=== PATIENT | female | born 1945 | race Caucasian/White ===

== ENCOUNTER 2024-07-11 12:44 | Emergency (ER) | payer BC, SELFPAY ==
[2024-07-11 12:57] VITALS: BP 150/82
[2024-07-11 13:25] LABS: % Basophils 0.2 % (0-2); % Eosinophils 0.2 % (0-6); % Immature Granulocytes 0.4 % (0-0.5); % Lymphocytes 8.4 % (20.5-51.1); % Monocytes 3.7 % (1.7-9.3); % Neutrophils 87.1 % (42.2-75.2); Absolute Immature Granulocytes 0.1 10^3/uL (0-0.05); Absolute Monocytes 0.4 10^3/uL (0.1-0.6); Absolute Neutrophils 10.5 10^3/uL (1.4-6.5); Hematocrit 39.9 % (37.0-47.0); Hemoglobin 13.4 g/dL (12.0-16.0); Mean Corp Hgb Conc. 33.6 g/dL (33.0-37.0); Mean Corpuscular Hgb 29.5 pg (27.0-31.0); Mean Corpuscular Volume 87.9 fL (81.0-99.0); Mean Platelet Volume 9.8 fL (7.4-10.4); Nucleated Red Blood Cells % 0 %; Platelet Count 289 10^3/uL (130-400); Red Blood Cell Count 4.54 10^6/uL (4.20-5.40); Red Cell Dist. Width 13.1 % (11.5-14.5)
[2024-07-11 13:26] LABS: Glucose - Point of Care 146 mg/dl (70-99)
[2024-07-11 13:37] LABS: Lactic Acid 2.4 mmol/L (0.7-2.0)
[2024-07-11 13:43] LABS: Blood Urea Nitrogen 17 mg/dl (7-17); Calcium 9.6 mg/dl (8.4-10.2); Carbon Dioxide 24 mmol/L (22-30); Chloride 99 mmol/L (98-107); Glucose 166 mg/dl (70-99); Sodium 137 mmol/L (135-145); eGFR > 60.00
[2024-07-11] MEDS: TYLENOL 650 MG PO (13:47)
[2024-07-11] MEDS: NSS 1000 IV (13:47)
[2024-07-11 15:15] LABS: Urine Albumin 1+ (Neg - Trace); Urine Bilirubin Negative (Negative); Urine Character Clear (Clear); Urine Color Yellow; Urine Glucose Negative (Negative); Urine Ketone Negative (Negative); Urine Leukocyte 1+ (Negative); Urine Nitrite Negative (Negative); Urine Occult Blood 4+ (Negative); Urine Urobilinogen Negative (Neg - 1+)
[2024-07-11 15:19] LABS: Urine Bacteria Few (Negative); Urine Red Blood Cell 26-30 /HPF (0-2); Urine Squamous Cell 16-20 /LPF (Few)
[2024-07-11] MEDS: ROCEPHIN 1000 MG IV (15:26)
--- NOTE | 2024-07-11 15:43 | ED.GENMED ---
History of Present Illness
General
Chief Complaint: Urinary Symptoms
Source: patient
Exam Limitations: none
Time Seen by Provider: 07/11/24 13:07
Nursing documentation reviewed up to this point in time: agreed with
History of Present Illness
History of Present Illness:
79-year-old female with a history of hypertension, insulin-dependent diabetes, DVT on Xarelto, coming from a correction, [facility] for gross hematuria this morning. Patient says that she has been having urinary frequency and some
suprapubic pressure over the last couple days. She does chronically wear depends at night because it is very difficult for her to get up and walk to the bathroom because of her body habitus. She also has chronic hip pain making it difficult for
her to move around. She says she noticed that she was urinating frequently since yesterday and even maybe the day before but then today when she urinated in the toilet she saw some blood coloring the water pink. There was no clot and she does feel
like she can void.
She was unaware she had a fever. She has not had any nausea or back pain. She does have a vaginal lesion that occasionally has blood, it is a cyst or some labial lesions it is being monitored and she thought maybe that could be the cause of the
bleeding so she had the staff there [place] and they did not see any bleeding from that area. Patient has not had any rectal bleeding.
Past History
Past History
ED Past Medical History: HTN, IDDM, Other (Morbid obesity) and Other (DVT)
ED Past Surgical History: Other (HYSTERECTOMY)
Social History
Tobacco: Non-smoker
Review of Systems
Review of Systems
Allergies reviewed?: Yes
All Other Systems: Not applicable
Phy Exam
Physical Exam
Physical Exam:
GENERAL: Alert , morbid obesity, very limited mobility
EYE: pupils equal and reactive
NECK: Supple
ENT: o/p clr, mmm.
CARDIAC: Regular rate and rhythm .+MURMUR
LUNGS: Clear breath sounds bilaterally, no acute respiratory distress, no wheezes/rales/rhonchi
ABDOMEN: Soft, morbid obesity without focal tenderness, no r/g, no cvat, normal bowel sounds
: labial region, no bleeding
bimanual difficult but no obvious bleeding
no blood in diaper near rectum
NEUROLOGICAL: Alert and oriented, no focal neuro deficits
SKIN: Warm and dry, skin intact.
MUSCULOSKELETAL: limited painful ROM of hips b/l
PSYCH: Normal and appropriate interaction.
Course
Orders/Labs/Results
Orders:
Orders
07/11/24 13:12
Basic Metabolic Panel Urgent
Complete Blood Count/With Diff Urgent
Lactic Acid Urgent
07/11/24 13:42
CT Abd/pel Without Iv Or Oral Urgent
Comment:
Reason For Exam: hematuria
0.9% Sodium Chloride 1000 ml [Nss] 1,000 ml IV BOLUS
07/11/24 13:44
Acetaminophen [Tylenol] 650 mg PO NOW STA
07/11/24 14:50
Straight cath- Treatment ONCE
07/11/24 15:06
Urinalysis Reflex To Culture Urgent
Date Specimen was Collected: 07/11/24
Time Specimen was Collected: 14:54
Urine Microscopic Reflex Cult Urgent
Urine Culture Urgent
NIURKA Source: U
Specimen Description:
Date Specimen was Collected: 07/11/24
Time Specimen was Collected: 14:54
07/11/24 15:19
CefTRIAXone [Rocephin] 1,000 mg IV NOW STA
07/11/24 15:48
Lactic Acid Urgent
07/11/24 16:18
Dextrose 50%-Water [Dextrose 50% Syringe] 25 grams IV NOW STA
Abnormal Lab Results
07/11/24 07/11/24 07/11/24
13:12 13:24 15:06
WBC 12.0 H 10^3/uL
(4.8-10.8)
Abs Immat Gran (auto) 0.1 H 10^3/uL
(0-0.05)
Absolute Neuts (auto) 10.5 H 10^3/uL
(1.4-6.5)
Absolute Lymphs (auto) 1.0 L 10^3/uL
(1.2-3.4)
Neutrophils % 87.1 H %
(42.2-75.2)
Lymphocytes % 8.4 L %
(20.5-51.1)
Glucose 166 H mg/dl
(70-99)
Lactic Acid 2.4 H mmol/L
(0.7-2.0)
Ur Occult Blood Reflex 4+ A
(Negative)
Leukocyte Esterase Rfl 1+ A
(Negative)
Urine RBC 26-30 A /HPF
(0-2)
Urine Bacteria (Reflex) Few A
(Negative)
Urine Albumin (Reflex) 1+ A
(Neg - Trace)
POC Glucose 146 H mg/dl
(70-99)
07/11/24 07/11/24 07/11/24
15:50 16:16 16:50
WBC
Abs Immat Gran (auto)
Absolute Neuts (auto)
Absolute Lymphs (auto)
Neutrophils %
Lymphocytes %
Glucose
Lactic Acid
Ur Occult Blood Reflex
Leukocyte Esterase Rfl
Urine RBC
Urine Bacteria (Reflex)
Urine Albumin (Reflex)
POC Glucose 56 L mg/dl 62 L mg/dl 149 H mg/dl
(70-99) (70-99) (70-99)
07/11/24 13:12
07/11/24 13:12
Vital Signs
Initial and Last Documented VS:
Initial Vital Signs
Temp Pulse Resp BP Pulse Ox
100.7 F H 80 16 150/82 97
07/11/24 12:57 07/11/24 12:57 07/11/24 12:57 07/11/24 12:57 07/11/24 12:57
Last Documented Vital Signs
Temp Pulse Resp BP Pulse Ox
98.2 F 94 16 150/82 97
07/11/24 16:10 07/11/24 16:30 07/11/24 16:30 07/11/24 12:57 07/11/24 12:57
MDM/Problems Addressed
Differential Diagnosis Includes:
hemorrhagic cysitits
obstructive uroatphy
MDM/Problems Addressed:
79 y/o F
obesity
wears depends at night
on xarelto
here with some inc urinary frequency and gross hematuria
febrile here
normal bp
nonotxoci
difficult exam because of body habitus
wbc 12 with left shift
lactic 2.1
cr normal
ua +
unable to obtain PVR
ct scan does not show bladder distension or obstruction, no hydro
likely cystitis
will repeat lactic
if clear, d/c dory
pt did have insulin this am and didn't eat
felt al ittle hypoglycemic and accucheck is 56; given food
will recheck
anticipate d/c
REPEAT ACCUCHECK NORMAL AFTER DEXTROSE
SHE TAKES NO ORAL HYPOGLYCEMICS
pt will be d/c back to facility
lactate claered.
*Critical Care Note
Total Time (30-74mins, 75-104mins- exclusive of procedures): Not Applicable
ED Attending Note
-
Portions of this chart may have been created with voice recognition software.� Occasional wrong word or��sound alike� substitutions may have occurred due to the inherent limitations of voice recognition software.
Discharge Plan
Departure
Patient Disposition: Home (Routine Discharge)
Date of Disposition: 07/11/24
Time of Disposition: 17:01
Admit to: Med/Surg
Patient with high blood pressure during this ER visit?: No
Condition: Fair
Covid-19: Not Applicable
Discharge Problem:
Acute hemorrhagic cystitis, Sepsis
Prescriptions:
New
cefdinir 300 mg capsule
300 mg PO Q12H Qty: 14 0RF
No Action
metoprolol succinate 50 mg Tablet Extended Release 24 Hr
50 mg PO DAILY@2099
cyanocobalamin (vitamin B-12) 1,000 mcg Tablet
1,000 mcg PO FELTON
acetaminophen [Tylenol Arthritis] 650 mg Tablet Extended Release
650 mg PO DAILY
insulin lispro [Humalog KwikPen Insulin] 100 unit/mL Insulin Pen
1 sliding scale dose SC AC
insulin glargine [Lantus Solostar U-100 Insulin] 100 unit/mL (3 mL) Insulin Pen
0 unit SC HS
Patient Comments:
07/11/24: Patient uses sliding scale
cholecalciferol (vitamin D3) [Vitamin D3] 50 mcg (2,000 unit) Tablet
50 mcg PO DAILY
Creon 24,000-76,000 -120,000 unit Capsule,Delayed Release(Dr/Ec)
1 cap PO BID
Patient Comments:
07/11/24: Breakfast and dinner
Creon 24,000-76,000 -120,000 unit Capsule,Delayed Release(Dr/Ec)
2 cap PO NOON
Patient Comments:
07/11/24: lunch
pitavastatin calcium [Livalo] 2 mg Tablet
2 mg PO DAILY@2099
Xarelto 10 mg Tablet
10 mg PO DAILY@2099
Referrals:
Belén Osuna MD [Family Provider] - Follow up in 2-3 days
Activity Restrictions/Additional Instructions:
YOUR SYPMTOMS ARE LIKELY FROM A URINE INFECTION
YOUR BLEEDING IS MINIMAL AND YOU HAVE NO SIGNS OF URINARY RETENTION
YOU DID HAVE A FEVER SO WE GAVE A DOSE OF TYLENOL AND IV ANTIBIOTICS
TAKE CEFDINIR TWICE A DAY FOR 7 DAYS FOR THE INFECTION
WATCH FOR WORSENING BLEEDING - RETURN FOR INABILITY TO URINATE AT ALL, CLOTS, WORSE BLEEDING IN YOUR URINE, WEAKNESS, HIGH FEVERS, VOMITING OR ANY CONCERNS.
OTHERWISE FOLLOW UP WITH YOUR DOCTOR AND UROLOGY
THERE WAS NO SIGN OF VAGINAL BLEEDING ON EXAM.
Interventions
Interventions:
*Risk Screen - Suicide Last Done: 07/11/24 13:07
*General Assessment Last Done: 07/11/24 13:07
*Neglect/Abuse Screening Last Done: 07/11/24 13:07
*ED COVID-19 Vaccine History Last Done: 07/11/24 13:07
ED-Female Genitourinary Assessment Last Done: 07/11/24 13:06
Discharge Date and Time
Print Language: TAJIK
[2024-07-11 15:52] LABS: Glucose - Point of Care 56 mg/dl (70-99)
[2024-07-11 16:17] LABS: Glucose - Point of Care 62 mg/dl (70-99)
[2024-07-11 16:18] LABS: Lactic Acid 1.3 mmol/L (0.7-2.0)
[2024-07-11] MEDS: DEXTROSE 50% SYRINGE 25 GRAMS IV (16:21)
[2024-07-11 16:51] LABS: Glucose - Point of Care 149 mg/dl (70-99)
[2024-07-11 17:45] VITALS: BP 150/60
== END 2024-07-11 18:02 | disposition home or self-care (01) ==
LOC: EMR 12:44
PROVIDERS: Physician Assistant; EMERGENCY PHYSICIAN Student in an Organized Health Care Education/Training Program; FAMILY PHYSICIAN Family Medicine
DX: N30.01 Acute cystitis with hematuria (principal); A41.9 Sepsis, unspecified organism; E11.649 Type 2 diabetes mellitus with hypoglycemia without coma; I10 Essential (primary) hypertension
CPT/HCPCS: 99284; 96374; 96375; 96361; 74176; 80048; 81003; 81015; 82962; 83605; 85025; 87086